=== PATIENT | male | born 1940 | race Two or more races ===

== ENCOUNTER 2018-06-29 10:24 | Day surgery (SDC) | payer MEDICARE, BC ==
[2018-06-27 12:15] LABS: BASOPHILS % (AUTO) 0.6 % (0-1); EOSINOPHILS # (AUTO) 0.1 X10'3 (0-0.9); EOSINOPHILS % (AUTO) 2.2 % (0-6); HEMOGLOBIN 10.7 g/dl (14.0-17.9); LYMPHOCYTES # (AUTO) 1.2 X10'3 (1.1-4.8); LYMPHOCYTES % (AUTO) 20.8 % (21-51); MEAN CORPUSCULAR HEMOGLOBIN 27.3 PG (27.0-31.0); MEAN CORPUSCULAR HGB CONC 32.3 g/dL (33.0-36.5); MEAN CORPUSCULAR VOLUME 84.4 FL (78-98); MEAN PLATELET VOLUME 8.5 FL (7.4-10.4); MONOCYTES # (AUTO) 0.6 X10'3 (0-0.9); MONOCYTES % (AUTO) 11.5 % (2-12); NEUTROPHILS # (AUTO) 3.6 X10'3 (1.8-7.7); NEUTROPHILS % (AUTO) 64.9 % (42-75); PLATELET COUNT 193 X10'3 (140-440); RED BLOOD COUNT 3.91 X10'6 (4.70-6.10); RED CELL DISTRIBUTION WIDTH 15.2 % (11.5-14.5); WHITE BLOOD COUNT 5.6 X10'3 (4.5-11.0)
[2018-06-27 12:28] LABS: INR 0.9 INR; PARTIAL THROMBOPLASTIN TIME 25 SECONDS (22-32)
[2018-06-27 12:40] LABS: ALANINE AMINOTRANSFERASE 18 U/L (12-78); ALBUMIN 3.2 G/DL (3.4-5.0); ALBUMIN/GLOBULIN RATIO 0.9 (1.1-1.5); ALKALINE PHOSPHATASE 40 IU/L (46-116); ANION GAP 6 (8-16); ASPARTATE AMINO TRANSFERASE 13 U/L (10-37); BILIRUBIN,TOTAL 0.3 MG/DL (0.1-1.0); BLOOD UREA NITROGEN 28 MG/DL (7-18); BUN/CREATININE RATIO 18.4 (5.4-32.0); CALCIUM 9.1 MG/DL (8.5-10.1); CHLORIDE 104 MMOL/L (99-107); CREATININE 1.52 MG/DL (0.60-1.10); GLUCOSE 206 MG/DL (70-104); POTASSIUM 5.5 MMOL/L (3.5-5.1); SODIUM 139 MMOL/L (135-145); TOTAL CARBON DIOXIDE 28.8 MMOL/L (24-32); TOTAL PROTEIN 6.6 G/DL (6.4-8.2); eGFR 44 ML/MIN
[~2018-06-29] VITALS: Ht 167.6 cm; Wt 83.3 kg
[2018-06-29] VITALS (12 sets, daily range): BP systolic 137–173; BP diastolic 59–84
[2018-06-29] MEDS ORDERED: LORazepam 0.5 MG tablet PO PRN (11:00)
[2018-06-29] MEDS ORDERED: nitroGLYCERIN 0.4mg SUBLingual tab SL PRN (11:00)
[2018-06-29] MEDS ORDERED: normal saline 1,000 ML IV SCH (11:00)
[2018-06-29] MEDS ORDERED: dextrose 50%-water 50ml dispensing syringe IV PRN ×2 (11:00)
[2018-06-29] MEDS ORDERED: glucagon, human recombinant 1mg kit SUBCUT PRN (11:00)
[2018-06-29] MEDS ORDERED: insulin Lispro (HumaLOG) vial - multi-dose SQ SCH (11:00)
[2018-06-29] MEDS ORDERED: diphenhydrAMINE 25mg capsule PO PRN (11:00)
[2018-06-29] MEDS ORDERED: dextrose ORAL solution 15 GM/59 ML bottle PO PRN ×2 (11:00)
[2018-06-29] MEDS ORDERED: METF-438 PO (11:24)
[2018-06-29] MEDS ORDERED: OXYGEN NS (11:24)
[2018-06-29] MEDS ORDERED: OMEP20CA10 PO (11:24)
[2018-06-29] MEDS ORDERED: BRIM10DR2 OP (11:24)
[2018-06-29] MEDS ORDERED: ZOLP5TAB8 PO (11:24)
[2018-06-29] MEDS ORDERED: HYDR-4383 PO (11:24)
[2018-06-29] MEDS ORDERED: LANTUS SQ (11:24)
[2018-06-29] MEDS ORDERED: GLIP10TA11 PO (11:24)
[2018-06-29] MEDS ORDERED: SITA100T11 PO (11:24)
[2018-06-29] MEDS ORDERED: GABA600T13 PO (11:24)
[2018-06-29] MEDS ORDERED: iohexol 350 MG/ML 50ML vial IV ONE ×2 (11:43→12:52)
[2018-06-29] MEDS ORDERED: heparin 1,000 UNITS/NS 500ml 500 ML ONE (11:43)
[2018-06-29] MEDS ORDERED: LIDOcaine 1% (10mg/ml)w/preservative injection 20ml MDV ONE (11:43)
[2018-06-29] MEDS ORDERED: iohexol 350MG/ML 100ml bottle IV ONE (11:43)
--- NOTE | 2018-06-29 12:19 | NUR ---
CALLED PTS SON, INFORMED HIM TO COME TO WAITING ROOM ON SECOND FLOOR, REQUESTED BY HIM.
[2018-06-29] MEDS ORDERED: fentaNYL/PF 50MCG/1 ML 2ML syringe ONE (12:25)
[2018-06-29] MEDS ORDERED: midazolam 2 mg/2 ml injection ONE (12:25)
[2018-06-29 13:21] LABS: ISTAT HGB ART 10.2 g/dl (14.0-18.0); ISTAT Hct ART 30 %PCV (42-52); ISTAT O2 SATURATION ARTERIAL 80 % (95-98); ISTAT SOURCE ART
[2018-06-29 13:21] LABS: ISTAT Hct MIX 30 %PCV (42-52); ISTAT O2 SATURATION MIX VENOUS 46 % (60-80); ISTAT SOURCE MIX
--- NOTE | 2018-06-29 15:10 | NUR ---
pt complaint of not being "able to pee". pt has not voided since prior to arrival. mcdonald placed per order. pt drained 450ml clear yellow urine.
--- NOTE | 2018-06-29 18:58 | NUR ---
CORRECTION; PT WAS ON NASAL CANNULA AT 2L FOR VS CHARTED AT 1345,1400,[id number],1430,[id number],1515,[id number],1715.
--- NOTE | 2018-06-29 19:30 | NUR ---
DC'D RAMIREZ CATH. 650ML TOTAL OUT. CLEAR YELLOW URINE
[2018-06-29] MEDS ORDERED: insulin glargine (Lantus) pen - multi-dose SQ SCH (21:00)
== END 2018-06-29 20:40 | disposition home or self-care (01) ==
LOC: SSTAY O 10:24
PROVIDERS: ATTEND Internal Medicine Cardiovascular Disease
DX: I25.10 Atherosclerotic heart disease of native coronary artery without angina pectoris (principal); I27.20 Pulmonary hypertension, unspecified; I47.1 Supraventricular tachycardia; I44.7 Left bundle-branch block, unspecified; I49.3 Ventricular premature depolarization; E11.9 Type 2 diabetes mellitus without complications; J44.9 Chronic obstructive pulmonary disease, unspecified; I10 Essential (primary) hypertension; E78.5 Hyperlipidemia, unspecified; I73.9 Peripheral vascular disease, unspecified; Z87.891 Personal history of nicotine dependence
CPT/HCPCS: 36415; 71046; 80053; 82803; 82948; 85014; 85025; 85610; 85730; 93460; 99152; 99153; A6257; J1644; J2001; J2250; J3010; J7030; Q0163; Q9967; 93461; A4620; C1760; C1769; J1815

== ENCOUNTER 2021-06-07 07:32 | Day surgery (SDC) | payer MEDICARE ==
[~2021-06-07] VITALS: Ht 167.6 cm; Wt 74.8 kg
[~2021-06-07 07:32] MED LIST: BRIM10DR2 OP; GABA600T13 PO; GLIP10TA11 PO; HYDR-4383 PO; LANTUS SQ; METF-438 PO; OMEP20CA15 PO; OXYGEN NS; SITA100T11 PO; ZOLP5TAB8 PO
[2021-06-07 07:45] VITALS: BP 145/65
[2021-06-07] MEDS ORDERED: normal saline 1,000 ML IV SCH (08:20)
[2021-06-07] MEDS ORDERED: iohexol 300mg/ml 100ml inj. ONE (09:43)
== END 2021-06-07 13:20 | disposition home or self-care (01) ==
LOC: SSTAY O 07:32 → EDSTATUS 08:00 → SSTAY O 13:20
PROVIDERS: ATTEND Nurse Practitioner
DX: R10.9 Unspecified abdominal pain (principal); Z79.899 Other long term (current) drug therapy
CPT/HCPCS: 74177; 82948; J7030; Q9967